=== PATIENT | male | born 1985 | race Caucasian/White ===

== ENCOUNTER 2017-03-17 10:06 | Emergency (ER) | payer SELFPAY | END 2017-03-17 10:37 | disposition home or self-care (01) | LOC: NAV ERS 10:06 | DX: H69.93 Unspecified Eustachian tube disorder, bilateral (principal); J30.9 Allergic rhinitis, unspecified; F17.210 Nicotine dependence, cigarettes, uncomplicated | CPT/HCPCS: 99282 ==

== ENCOUNTER 2023-03-03 11:23 | Emergency (ER) | payer SELFPAY | END 2023-03-03 12:30 | disposition home or self-care (01) | LOC: NAV ERS 11:23 | DX: J20.9 Acute bronchitis, unspecified (principal); F17.210 Nicotine dependence, cigarettes, uncomplicated | CPT/HCPCS: 87804; 99283 ==